=== PATIENT | female | born 1995 ===

== ENCOUNTER → 2021-06-09 09:19 | Outpatient (CLI) | payer OTHER, SELFPAY ==
--- NOTE | 2021-06-09 | DI.MRI.S_ITS ---
PROCEDURE: MR LUMBAR SPINE WO CON INDICATIONS: Low back pain, unspecified TECHNIQUE: Noncontrast sagittal T1 spin echo and T2 fast echo, sagittal STIR, axial T1 and T2 fast spin echo through the lumbar spine. In cases with scoliosis, additional coronal T2 fast spin echo may be performed. COMPARISON: [facility] Outside Film, CR, XR LUMBAR SPINE 2 OR 3 VIEWS, 03/22/2021, 9:50. FINDINGS: Image quality: Excellent. Alignment and Curvature: There is normal bony alignment. Bone Marrow: Marrow is of normal overall signal. No acute vertebral body compression fractures. Spinal Cord: Conus medullaris terminates at the L1-L2 level. Visualized cord demonstrates normal signal and size. Paraspinous Soft Tissues: No paravertebral masses. T12-L1: Normal appearance. L1-L2: Normal appearance. L2-L3: Normal appearance. L3-L4: Normal appearance. L4-L5: Normal appearance. L5-S1: The disc height is well-preserved. Loss of disc signal is seen at this level. Mild disc bulge is seen, with a central disc protrusion, with an associated annular fissure. There is minimal right-sided and mild left-sided neural foraminal narrowing seen. Minimal central canal narrowing is seen. IMPRESSION: At L5-S1, there is a central disc protrusion with an associated annular fissure seen. Dictated by: Rusty Walsh M.D. on 06/09/2021 at 11:05 Approved by: Rusty Walsh M.D. on 06/09/2021 at 11:07
== END ==
DX: M51.26 Other intervertebral disc displacement, lumbar region (principal)
CPT/HCPCS: 72148